=== PATIENT | male | born 1945 | race Caucasian/White ===

== ENCOUNTER 2017-07-15 09:12 | Day surgery (SDC) | payer MEDICARE ==
[2017-07-15] MEDS ORDERED: Lactated Ringer's 1,000 ML IV ONE (09:27)
[2017-07-15] MEDS ORDERED: Propofol 10 mg/ml Inj (20 ML) ONE (09:48)
[2017-07-15 11:11] VITALS: TEMP 96.9
[2017-07-15 11:22] VITALS: BP 102/62; PULSE 82; RESP 12; O2SAT 97
== END 2017-07-15 11:36 | disposition home or self-care (01) ==
LOC: H.ENDO 09:12
PROVIDERS: ATTEND Internal Medicine Gastroenterology
DX: K62.5 Hemorrhage of anus and rectum (principal); K29.70 Gastritis, unspecified, without bleeding; E11.9 Type 2 diabetes mellitus without complications; E78.5 Hyperlipidemia, unspecified; I10 Essential (primary) hypertension; D12.2 Benign neoplasm of ascending colon
CPT/HCPCS: 45380; 45381; 82948; 88305; J2704; J7120

== ENCOUNTER 2017-08-26 08:52 | Day surgery (SDC) | payer MEDICARE ==
[2017-08-26] MEDS ORDERED: Lactated Ringer's 1,000 ML IV ONE (09:06)
[2017-08-26] MEDS ORDERED: Propofol 10 mg/ml Inj (20 ML) ONE (10:34)
[2017-08-26] MEDS ORDERED: Lidocaine PF 2% (5 ml) Inj (For Cardiac Arrhy) IV ONE (10:34)
[2017-08-26] MEDS ORDERED: Glucagon Recombinant 1 mg Inj ONE (11:02)
[2017-08-26 11:30] VITALS: TEMP 97
[2017-08-26 11:44] VITALS: BP 109/63; PULSE 86; RESP 22; O2SAT 100
== END 2017-08-26 12:01 | disposition home or self-care (01) ==
LOC: H.ENDO 08:52
PROVIDERS: ATTEND Internal Medicine Gastroenterology
DX: Z86.010 Personal history of colon polyps (principal); E11.9 Type 2 diabetes mellitus without complications; E78.5 Hyperlipidemia, unspecified; I10 Essential (primary) hypertension
CPT/HCPCS: 45384; 82948; 88305; J1610; J2001; J2704; J7120